=== PATIENT | male | born 1970 | race Caucasian/White ===

== ENCOUNTER 2018-09-11 12:32 | Inpatient (IN) ==
[2018-09-11] MEDS ORDERED: DESYREL PO PRN (15:22)
[2018-09-11] MEDS ORDERED: MOTRIN PO PRN (15:22)
[2018-09-11] MEDS ORDERED: SEROQUEL PO PRN (15:22)
[2018-09-11] MEDS ORDERED: IMODIUM PO PRN (15:22)
[2018-09-11] MEDS ORDERED: D5W 1,000 ML IV PRN (15:22)
[2018-09-11] MEDS ORDERED: ROBAXIN PO PRN (15:22)
[2018-09-11] MEDS ORDERED: ZOFRAN IV PRN (15:22)
[2018-09-11] MEDS ORDERED: PHENOBARBITAL IV PRN (15:22)
[2018-09-11] MEDS ORDERED: TYLENOL PO PRN (15:22)
[2018-09-11] MEDS ORDERED: ZOFRAN ODT PO PRN (15:22)
[2018-09-11] MEDS ORDERED: MAALOX PLUS LIQUID PO PRN (15:22)
[2018-09-11] MEDS ORDERED: BENTYL PO PRN (15:22)
[2018-09-11] MEDS ORDERED: DULCOLAX PR PRN (15:22)
[2018-09-11] MEDS ORDERED: NICODERM PATCH TD PRN (15:22)
[2018-09-11] MEDS ORDERED: SINEMET 25/100 PO PRN (15:22)
[2018-09-11] MEDS ORDERED: SENOKOT PO PRN (15:22)
[2018-09-11] MEDS ORDERED: TUBERSOL ID ONE (16:00)
[2018-09-11 16:53] LABS: AMYLASE 50 U/L (20-200); LIPASE 24 U/L (13-60)
[2018-09-11] MEDS: ATARAX PO PRN (18:36)
[2018-09-11] MEDS: SUBOXONE 2 MG/0.5 MG FILM SL SCH (18:36)
[2018-09-11 18:41] LABS: URINE SOURCE VOIDED
[2018-09-11 18:56] LABS: UR AMPHETAMINES QUAL PRESUMPTIVE POSITIVE (NONE DETECT); UR BARBITUATES QUAL NONE DETECTED (NONE DETECT); UR BENZODIAZEPIN QUAL NONE DETECTED (NONE DETECT); UR CANNABINOIDS QUAL NONE DETECTED (NONE DETECT); UR COCAINE QUAL NONE DETECTED (NONE DETECT); UR METHADONE QUAL NONE DETECTED (NONE DETECT); UR METHAMPHETAMINE QUAL PRESUMPTIVE POSITIVE (NONE DETECT); UR OPIATES QUAL NONE DETECTED (NONE DETECT); UR OXYCODONE QUAL NONE DETECTED (NONE DETECT); UR PCP QUAL NONE DETECTED (NONE DETECT); UR PROPOXYPHENE QUAL NONE DETECTED (NONE DETECT); UR TCA QUAL NONE DETECTED (NONE DETECT)
[2018-09-11 18:58] LABS: BILIRUBIN URINE NEGATIVE (NEGATIVE); BLOOD URINE NEGATIVE (NEGATIVE); CLARITY CLEAR (CLEAR); COLOR YELLOW; GLUCOSE URINE NEGATIVE (NEGATIVE); KETONE URINE TRACE mg/dL (NEGATIVE); LEUKOCYTES URINE TRACE (NEGATIVE); NITRITE URINE NEGATIVE (NEGATIVE); PROTEIN URINE NEGATIVE (NEGATIVE); UROBILINOGEN URINE NORMAL
[2018-09-11 18:59] LABS: URINE BACTERIA NEGATIVE /HFP; URINE CAST NONE SEEN /LPF; URINE CRYSTAL NONE SEEN /HPF; URINE EPITHELIAL CELLS <10 /HPF (<10); URINE RBC <10 /HPF (<10); URINE WBC <10 /HPF (<10); URINE YEAST NONE SEEN /HPF
[2018-09-12] MEDS: SUBOXONE 2 MG/0.5 MG FILM SL SCH ×2 (05:07→18:52)
[2018-09-12] MEDS: PROTONIX PO SCH (06:14)
[2018-09-12] MEDS: LIBRIUM PO PRN ×2 (06:17→19:51)
[2018-09-12] MEDS: VITAMIN B-1 PO SCH (10:05)
[2018-09-12] MEDS: KEFLEX PO SCH ×3 (10:06→19:49)
[2018-09-12] MEDS: THERA M PLUS PO SCH (10:06)
[2018-09-12] MEDS: FOLIC ACID PO SCH (10:06)
[2018-09-13] MEDS: KEFLEX PO SCH ×2 (01:11→09:50)
--- NOTE | 2018-09-13 01:31 | PROGRESS NOTE ---
DATE: 09/12/2018 SUBJECTIVE: Patient states overall he is feeling a lot better, having much less muscle aches, much less nausea. Still having pain in his left hand. Denies any fevers or chills. PHYSICAL EXAMINATION: Vital Signs: Temperature 98.2 degrees, pulse 100, respiratory 18, BP 170/64. General: Patient is awake, alert, pleasant to talk with. HEENT: Normocephalic. Neck: Supple. Cardiovascular: Regular rate. Chest: Clear and nonlabored. Abdomen: Soft, nondistended. Extremities: Moves all extremities. He does have swelling and mild erythema over his left dorsum of his hand. Neurologic: No focal changes. ASSESSMENT: 1. Nausea, vomiting. 2. Abdominal pain. 3. Myalgias. 4. Left hand cellulitis. 5. Polysubstance use and abuse. 6. Chronic tobacco abuse. PLAN: We will continue patient in the hospital. Continue Suboxone at 4 mg. We will increase if needed. Further orders as needed. cc: Long Patel MD
[2018-09-13] MEDS: SUBOXONE 2 MG/0.5 MG FILM SL SCH (05:24)
[2018-09-13] MEDS: PROTONIX PO SCH (06:27)
[2018-09-13 08:54] VITALS: BP 121/65
[2018-09-13] MEDS: ATARAX PO PRN (09:50)
[2018-09-13] MEDS: VITAMIN B-1 PO SCH (09:50)
[2018-09-13] MEDS: FOLIC ACID PO SCH (09:50)
[2018-09-13] MEDS: THERA M PLUS PO SCH (09:50)
--- NOTE | 2018-09-14 04:30 | DISCHARGE SUMMARY ---
ADMISSION DATE: 09/11/2018 DISCHARGE DATE: 09/13/2018 DISCHARGE DIAGNOSIS: 1. Nausea, vomiting. 2. Abdominal pain. 3. Myalgias. 4. Left hand cellulitis, improved. 5. Polysubstance use and abuse. 6. Chronic tobacco abuse. 7. Chronic anxiety and depression. CONSULTATIONS: None. PROCEDURES: None. BRIEF HOSPITAL COURSE: Patient is a 48-year-old male who presented to the hospital, treated in the usual fashion. Placed on Suboxone which he has tolerated very well. On discharge, patient notes that he is feeling much better. In fact, states he feels better than he has felt in quite some time. DISPOSITION: We will discharge patient home. Will continue to follow up with treatment facility of his choice. Discussed with patient that he needs outpatient life counseling as well as drug counseling. He needs to avoid all persons, places, situations which he has been using and abusing in the past. cc: Long Patel MD
--- NOTE | 2018-09-16 08:35 | HISTORY AND PHYSICAL ---
CHIEF COMPLAINT: Nausea and vomiting. HISTORY OF PRESENT ILLNESS: The patient is a 48-year-old male who presented to [facility] secondary to nausea, vomiting, abdominal pain, myalgias, and polysubstance use and abuse. Notes as well that he had attempted to use methamphetamine in his left hand but thinks he missed the vein and he has had some swelling and puffiness of his left hand since. SOCIAL HISTORY: Patient is . He is on disability. Lives at home in [place]. PAST MEDICAL HISTORY: Significant for back and knee surgery, chronic stomach pain, chronic anxiety, depression, blackouts secondary to drug use, history of GI bleeding. FAMILY HISTORY: Noncontributory. REVIEW OF SYSTEMS: CINA score is elevated at 11 secondary to crampy abdominal pain, mild nausea, frequent muscle aches, frequent changes in temperature, frequent episodes of skin crawling. Denies any fevers or chills. Denies headaches, blurred vision, or change in vision. Denies any focalized numbness, tingling, or weakness in his extremities. Denies any dysuria, frequency, or urgency. Denies hesitancy, polyuria, or polydipsia. Denies any skin rashes, weight loss, or weight gain. MEDICATIONS: He is on no current prescription medications. ALLERGIES: None. SUBSTANCE ABUSE HISTORY: The patient was in [facility] in 1989 for alcohol treatment. He was again treated in 2007 for methamphetamine. He started drinking at age 18, has not drank since 2017. Started antidepressants at 46, currently uses seldomly. Started methamphetamine at age 46, currently using a gram every day. Started cocaine at 46, has not used since 2018. Started Ecstasy as well as age 46, currently using seldomly. Started nicotine at age 15, currently using a pack a day. Started opiates at 46, currently using [place], Roxicodone, or heroin. The patient notes this was all started at the time of a traumatic event in his life. FAMILY HISTORY: Noncontributory. PHYSICAL EXAMINATION: VITAL SIGNS: Reviewed. GENERAL: Patient is awake, alert. He is in no current respiratory distress. He is pleasant to talk with but is somewhat ill-appearing due to his withdrawal symptoms. HEENT: Normocephalic. NECK: Supple. CARDIOVASCULAR: Regular rate. CHEST: Clear. ABDOMEN: Soft. EXTREMITIES: Moves all extremities. NEUROLOGIC: No focal neurological changes. SKIN: Warm and dry. No rashes. ASSESSMENT: 1. Nausea and vomiting. 2. Abdominal pain. 3. Myalgias. 4. Paresthesias. 5. Paroxysmal sweating. 6. Opiate abuse, withdrawal, and stabilization. 7. Polysubstance abuse, withdrawal, and stabilization. PLAN: We will admit patient to the hospital, begin counseling, place on Suboxone, treat symptomatically as needed. cc: Long Patel MD
== END 2018-09-13 12:32 | disposition home or self-care (01) | DRG 897 ==
LOC: P.DIRADM 15:14 → P.MEDSURG 15:27
PROVIDERS: ADMIT Family Medicine; ATTEND Family Medicine
CPT/HCPCS: 80104; 80301; 80305; 80307; 80320; 81001; 82055; 82150; 83690; 86580; A9270; G0431; G0434; G0477; G0480; G6040